=== PATIENT | female | born 1975 | race Caucasian/White ===

== ENCOUNTER 2016-12-07 17:17 | Emergency (ER) | payer BC ==
[~2016-12-07] VITALS: Ht 172.7 cm; Wt 100.0 kg
[~2016-12-07 17:17] MED LIST: LEVO.1 PO; PRED20 PO; TRIA.1%T TOP
[2016-12-07 17:18] VITALS: BP 148/86; PULSE 86; RESP 18; TEMP 98.4; O2SAT 96
--- NOTE | 2016-12-07 19:52 | RADRPT ---
EXAM DATE/TIME: 12/07/2016 19:26 [facility] COMPARISON: No previous studies available for comparison. INDICATIONS : Right ankle pain. MEDICAL HISTORY : None. SURGICAL HISTORY : None. ENCOUNTER: Initial ACUITY: 1 day PAIN SCORE: 9/10 LOCATION: lateral distal ankle joint. FINDINGS: Three view exam was performed of the right ankle. The bony structures are in normal alignment. No e vidence of fracture, dislocation, or soft tissue swelling. The ankle mortise is intact. No radiopaq ue foreign bodies are seen. Bony mineralization is normal. CONCLUSION: Unremarkable examination of the right ankle. Steven Elliott MD on December 07, 2016 at 19:50 Board Certified Radiologist. This report was verified electronically.
[2016-12-07] MEDS ORDERED: LEVO.15 PO (20:10)
[2016-12-07] MEDS ORDERED: ALPR.5 PO (20:10)
--- NOTE | 2016-12-07 20:11 | PD ---
HPI Chief Complaint: Pain: Acute or Chronic Time Seen by Provider: 20:06 Travel History International Travel<30 days: No Contact w/Intl Traveler<30days: No Traveled to known affect area: No History of Present Illness HPI Patient comes in complaining of right ankle pain that began last night. Patient states that she came home from work she noticed redness and swelling in medial aspect of her right ankle describes as burning like in nature. Patient denies any radiation of the pain. Pain is worse with palpation. Denies any fevers, trauma, or drug use. Patient denies anything like this in the past. Patient applied ice it seemed to help some. 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,2008.) Cardiovascular Problems: No High Cholesterol: No Chemotherapy: No Chest Pain: No (FIRST EPISODE 08/03) Congestive Heart Failure: No COPD: No Diabetes: No Diminished Hearing: No Endocrine: No Glaucoma: No Genitourinary: No Hepatitis: No Hiatal Hernia: No Hypertension: No Immune Disorder: No Musculoskeletal: No Neurologic: No Psychiatric: No Reproductive: Yes (CERVICAL CA) Respiratory: No Immunizations Current: Yes Radiation Therapy: No Sleep Apnea: No Thyroid Disease: Yes (GOITER.) ?: Not : 1 Para: 1 Past Surgical History Abdominal Surgery: No Cardiac Surgery: No Ear Surgery: No Endocrine Surgery: No Eye Surgery: No Genitourinary Surgery: No Gynecologic Surgery: Yes (ABLATION; CONE BIOPSY; D&C X2) Hysterectomy: Yes Neurologic Surgery: No Oral Surgery: No Pacemaker: No Thoracic Surgery: No Other Surgery: Yes (D/C;HYSTERECTOMY;ABLASION IN VAGINA) Social History Alcohol Use: Yes (OCCASSIONALLY) Tobacco Use: Yes (1/2 PPD) Substance Use: No Allergies-Medications (Allergen,Severity, Reaction): Coded Allergies: Sulfa (Verified Allergy, Severe, Hives, 06/14/16) Reported Meds & Prescriptions Reported Meds & Active Scripts Active Keflex (Cephalexin) 500 Mg Cap 500 Mg PO Q12H 7 Days Reported Xanax (Alprazolam) 0.5 Mg Tab 0.5 Mg PO Q4H PRN Synthroid (Levothyroxine Sodium) 150 Mcg Tab 150 Mcg PO DAILY Review of Systems Except as stated in HPI: all other systems reviewed are Neg Physical Exam Narrative GENERAL: Well-developed, overly nourished, in no acute distress, and non-ill appearing. SKIN: Warm and dry. Nonerythematous and reveal aspect of right ankle. Is afebrile, nonfluctuant, nonindurated, and without crepitus. It is minimally tender to palpation. HEAD: Atraumatic. Normocephalic. EYES: Pupils equal and round. EOMI. No scleral icterus. No injection or drainage. ENT: No nasal bleeding or discharge. Mucous membranes pink and moist. NECK: Trachea midline. Supple. No nuclear rigidity. CARDIOVASCULAR: Dorsal pulses 2+, intact, and equal bilaterally. Capillary refill less than 2 seconds. RESPIRATORY: No accessory muscle use. No respiratory distress. MUSCULOSKELETAL: No obvious deformities. No clubbing. No cyanosis. No edema. Full range of motion. Ankle: Neagative anterior draw and Mazariegos test. Negative Kathryn's sign. No laxity noted with passive inversion and eversion of BL ankles. Negative squeeze test. Pulses equal BL distal to injury. Capillary refill less than 2 seconds distal to injury and equal BL. Sensation equal BL 1st web space. FROM of toes distal to injury and equal BL. NV intact distal to injury and equal BL. Dorsal pulses equal BL. Normal gait. NEUROLOGICAL: Awake and alert. No obvious cranial nerve deficits. Motor grossly within normal limits. Normal speech. PSYCHIATRIC: Appropriate mood and affect; insight and judgment normal. Data Data Last Documented VS Vital Signs Date Time Temp Pulse Resp B/P Pulse Ox O2 Delivery O2 Flow Rate FiO2 12/07/16 20:10 14 12/07/16 17:18 98.4 86 148/86 96 Room Air Orders Ankle, Complete ([id number]) (12/07/16 ) Ice/Cold Pack (12/07/16 19:29) [facility] Medical Decision Making Medical Screen Exam Complete: Yes Emergency Medical Condition: Yes Differential Diagnosis Fracture, strain, contusion, gout, pseudogout, cellulitis, tendinitis, other Narrative Course The patient appears to have suffered a contusion of the extremity. There is no clinical evidence to suspect bony injury by exam. Radiographic examination revealed no fracture seen at this time. The patient has full range of motion on active and passive motions. There is no significant edema. There is no proximal or distal joint effusion. The distal extremity appears neurovascularly intact, without evidence of neurovascular injury nor compartment syndrome. Tendon exam also was intact. The patient was discharged on antibiotics prophylactically to cover for possible early cellulitis and given warnings for vascular compromise. Patient states she has plenty of naproxen at home to take. The patient is to follow up with their regular physician or Orthopedics. The patient agrees with plan. Patient in no obvious distress upon re-evaluation. All pertinent Radiology result(s) discussed with patient. Patient was asked if they wanted to speak to my attending, which the patient did not wish to do at this time. Any questions/ concerns in reference to patient diagnosis/condition discussed and clarified prior to patient's discharge. Reinforced sheer importance of close follow up with patient's primary physician or primary care clinic. Instructed patient to return to ED immediately, if symptoms return/worsen. Pt showed understanding of above instructions. Further instructions and recommendations were detailed in discharge paperwork. Pt ambulated without difficulty out of ED at discharge. Diagnosis Primary Impression: Contusion of right ankle, initial encounter Referrals: Randy Galeano MD Patient Instructions: Contusion in Adults (ED), General Instructions Additional Instructions: Follow-up with your primary care physician and/or orthopedic in 3-5 days for reevaluation. Take all medication as prescribed. Take your naproxen as prescribed for pain control. Apply ice to affected area 20 minutes per hour as needed for pain. Return to the emergency department if symptoms get worse. Med/Other Pt SpecificInfo: Prescription(s) given Scripts Cephalexin (Keflex)500 Mg [id number] Mg PO Q12H 7 Days Ref 0 Prov:Prerna Guerra MD 12/07/16 Disposition: 01 DISCHARGE HOME Condition: Stable Evans Hancock Dec 07, 2016 20:11
[2016-12-07] MEDS ORDERED: CEPH-460 PO (20:12)
== END 2016-12-07 20:22 | disposition home or self-care (01) ==
LOC: NEPB 17:17
DX: S90.01XA Contusion of right ankle, initial encounter (principal); E07.9 Disorder of thyroid, unspecified; F17.200 Nicotine dependence, unspecified, uncomplicated; Z86.59 Personal history of other mental and behavioral disorders; Z85.41 Personal history of malignant neoplasm of cervix uteri; X58.XXXA Exposure to other specified factors, initial encounter
CPT/HCPCS: 73610; 99283

== ENCOUNTER 2017-05-01 20:37 | Observation (INO) | payer BC, OTHER ==
[2017-05-01] VITALS (8 sets, daily range): BP systolic 118–143; BP diastolic 66–85; PULSE 76–82; RESP 18; TEMP 98.3; O2SAT 90–98
[~2017-05-01] VITALS: Ht 172.7 cm; Wt 96.7 kg
[~2017-05-01 20:37] MED LIST changes: +ALPR.5 PO; +CEPH-460 PO; -LEVO.1 PO; +LEVO.15 PO; -PRED20 PO; -TRIA.1%T TOP
[2017-05-01] MEDS ORDERED: NITROGLYCERIN 0.4 MG SL 25 TABS/BTL SL PRN (21:00)
[2017-05-01] MEDS ORDERED: SODIUM CHLORIDE 0.9% FLUSH 10 ML FLUSH IVF PRN (21:00)
[2017-05-01] MEDS ORDERED: ASPIRIN 325 MG TAB PO ONE (21:00)
[2017-05-01] MEDS ORDERED: VITA1000 PO (21:01)
--- NOTE | 2017-05-01 21:03 | PD ---
HPI Chief Complaint: Chest Pain Time Seen by Provider: 20:51 Travel History International Travel<30 days: No Contact w/Intl Traveler<30days: No Traveled to known affect area: No History of Present Illness HPI 41yo F with PMH of hypothyroidism, anxiety, current cig smoker presents to the ED with c/o left sided chest pain today. States it is sharp and pressure like, intermittent lasting minutes at a time. Associated with sob, nausea, tingling in left fingers. Nonradiating. Denies any fever, cough, vomiting, abdominal pain, focal weakness. When asked if it is similar to her chest pain in 2015, states this is different. Pt was in chest pain center and had negative stress test in 07/2015. Denies having any firer boiler. States pain is worst lying down. 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,2008.) Cardiovascular Problems: No High Cholesterol: No Chemotherapy: No Congestive Heart Failure: No COPD: No Diabetes: No Diminished Hearing: No Endocrine: No Glaucoma: No Genitourinary: No Hepatitis: No Hiatal Hernia: No Hypertension: No Immune Disorder: No Musculoskeletal: No Neurologic: No Psychiatric: No Reproductive: Yes (CERVICAL CA) Respiratory: No Immunizations Current: Yes Radiation Therapy: No Sleep Apnea: No Thyroid Disease: Yes (GOITER.) ?: Not : 1 Para: 1 Past Surgical History Abdominal Surgery: No Cardiac Surgery: No Ear Surgery: No Endocrine Surgery: No Eye Surgery: No Genitourinary Surgery: No Gynecologic Surgery: Yes (ABLATION; CONE BIOPSY; D&C X2) Hysterectomy: Yes Neurologic Surgery: No Oral Surgery: No Pacemaker: No Thoracic Surgery: No Other Surgery: Yes (D/C;HYSTERECTOMY;ABLASION IN VAGINA) Social History Alcohol Use: Yes (OCCASSIONALLY) Tobacco Use: Yes (1/2 PPD) Substance Use: No Allergies-Medications (Allergen,Severity, Reaction): Coded Allergies: Sulfa (Sulfonamide Antibiotics) (Unverified Allergy, Severe, Hives, ) Reported Meds & Prescriptions Reported Meds & Active Scripts Active Reported Vitamin D-1000 (Cholecalciferol) 1,000 Unit Tab 1,000 Units PO DAILY Xanax (Alprazolam) 0.5 Mg Tab 0.5 Mg PO Q4H PRN Synthroid (Levothyroxine Sodium) 150 Mcg Tab 150 Mcg PO DAILY Review of Systems Except as stated in HPI: all other systems reviewed are Neg Physical Exam Narrative GENERAL: 41yo F in mild distress. SKIN: Focused skin assessment warm/dry. HEAD: Atraumatic. Normocephalic. CARDIOVASCULAR: Regular rate and rhythm. No murmur appreciated. RESPIRATORY: No accessory muscle use. Clear to auscultation. Breath sounds equal bilaterally. GASTROINTESTINAL: Abdomen soft, non-tender, nondistended. No rebound tenderness or guarding. MUSCULOSKELETAL: No obvious deformities. No clubbing. No cyanosis. No edema. NEUROLOGICAL: Awake and alert. No obvious cranial nerve deficits. Motor grossly within normal limits. Normal speech. PSYCHIATRIC: Appropriate mood and affect; insight and judgment normal. Data Data Last Documented VS Vital Signs Date Time Temp Pulse Resp B/P Pulse Ox O2 Delivery O2 Flow Rate FiO2 05/01/17 21:30 79 18 118/80 98 Room Air 135/74 05/01/17 21:03 2 05/01/17 20:56 98.3 Orders Electrocardiogram (05/01/17 20:58) Basic Metabolic Panel (Bmp) (05/01/17 20:58) Complete Blood Count With Diff (05/01/17 20:58) Magnesium (Mg) (05/01/17 20:58) Prothrombin Time / Inr (Pt) (05/01/17 20:58) Act Partial Throm Time (Ptt) (05/01/17 20:58) Troponin I (05/01/17 20:58) Chest, Single Ap (05/01/17 20:58) Ecg Monitoring (05/01/17 20:58) Bilateral Bp Monitoring (05/01/17 20:58) Iv Access Insert/Monitor (05/01/17 20:58) Oximetry (05/01/17 20:58) Oxygen Administration (05/01/17 20:58) Sodium Chloride 0.9% Flush (Ns Flush) (05/01/17 21:00) Aspirin (Aspirin) (05/01/17 21:00) Nitroglycerin Sl (Nitrostat Sl) (05/01/17 21:00) Thyroid Stimulating Hormone (05/01/17 20:58) Lorazepam Inj (Ativan Inj) (05/01/17 22:30) Admit Order (Ed Use Only) (05/01/17 22:24) Labs Laboratory Tests Test 05/01/17 21:15 White Blood Count 9.4 TH/MM3 Red Blood Count 4.56 MIL/MM3 Hemoglobin 13.7 GM/DL Hematocrit 40.0 % Mean Corpuscular Volume 87.6 FL Mean Corpuscular Hemoglobin 30.0 PG Mean Corpuscular Hemoglobin 34.3 % Concent Red Cell Distribution Width 13.2 % Platelet Count 327 TH/MM3 Mean Platelet Volume 7.6 FL Neutrophils (%) (Auto) 58.9 % Lymphocytes (%) (Auto) 33.2 % Monocytes (%) (Auto) 4.0 % Eosinophils (%) (Auto) 3.2 % Basophils (%) (Auto) 0.7 % Neutrophils # (Auto) 5.6 TH/MM3 Lymphocytes # (Auto) 3.1 TH/MM3 Monocytes # (Auto) 0.4 TH/MM3 Eosinophils # (Auto) 0.3 TH/MM3 Basophils # (Auto) 0.1 TH/MM3 CBC Comment DIFF FINAL Differential Comment Prothrombin Time 10.0 SEC Prothromb Time International 0.9 RATIO Ratio Activated Partial 31.1 SEC Thromboplast Time Sodium Level 141 MEQ/L Potassium Level 3.9 MEQ/L Chloride Level 108 MEQ/L Carbon Dioxide Level 26.4 MEQ/L Anion Gap 7 MEQ/L Blood Urea Nitrogen 15 MG/DL Creatinine 0.99 MG/DL Estimat Glomerular Filtration 61 ML/MIN Rate Random Glucose 146 MG/DL Calcium Level 8.5 MG/DL Magnesium Level 1.8 MG/DL Troponin I LESS THAN 0.02 NG/ML Thyroid Stimulating Hormone 2.990 uIU/ML [address] [place] [address] Medical Decision Making Medical Screen Exam Complete: Yes Emergency Medical Condition: Yes Interpretation(s) EKG: NSR 77bpm. Normal axis. No ST segment elevation or depression. TWI III. Differential Diagnosis ACS vs anxiety vs. GERD vs. pericarditis Narrative Course 41yo F with intermittent chest pain. Although this may be her anxiety, pt is adamant that this feels different. Pt does appear anxious to me so ativan 1mg IV given. Pt does have cardiac risk factors and is a current cig smoker. She does not have a firer boiler to follow up with. Labs reviewed, no leukocytosis. Troponin negative. TSH normal. Pt given aspirin and 1 sublingual nitro. Pt reevaluated after medication and states she feels better. Will admit pt to chest pain center for serial EKG and cardiac enzyme. Discussed with Dr. Padgett and accepted to her service for chest pain center. Diagnosis Primary Impression: Chest pain Qualified Code: R07.9 - Chest pain, unspecified type Admitting Information Admitting Physician Requests: Pura Griggs DO May 01, 2017 21:03
[2017-05-01 21:29] LABS: AUTOMATED NEUTROPHIL # 5.6 TH/MM3 (1.8-7.7); BASOPHIL # 0.1 TH/MM3 (0-0.2); BASOPHIL % 0.7 % (0.0-2.0); EOSINOPHIL # 0.3 TH/MM3 (0-0.4); EOSINOPHIL % 3.2 % (0.0-4.0); HEMO FLAGS DIFF FINAL; LYMPH % 33.2 % (9.0-44.0); LYMPHOCYTE # 3.1 TH/MM3 (1.0-4.8); MEAN CELL VOLUME 87.6 FL (80.0-100.0); MEAN CORPUSCULAR HGB CONC 34.3 % (32.0-36.0); NEUT % 58.9 % (16.0-70.0); PLATELET COUNT 327 TH/MM3 (150-450); RED BLOOD COUNT 4.56 MIL/MM3 (4.00-5.30); RED CELL DISTRIBUTION WIDTH 13.2 % (11.6-17.2); WHITE BLOOD COUNT 9.4 TH/MM3 (4.0-11.0)
[2017-05-01 21:35] LABS: CHLORIDE 108 MEQ/L (98-107); POTASSIUM 3.9 MEQ/L (3.5-5.1); SODIUM (NA) 141 MEQ/L (136-145)
[2017-05-01 21:38] LABS: APTT (PATIENT) 31.1 SEC (24.3-30.1); INTERNATIONAL NORMALIZED RATIO 0.9 RATIO
[2017-05-01 21:39] LABS: ANION GAP 7 MEQ/L (5-15); BICARBONATE 26.4 MEQ/L (21.0-32.0); BLOOD UREA NITROGEN 15 MG/DL (7-18); MAGNESIUM 1.8 MG/DL (1.5-2.5)
[2017-05-01 21:42] LABS: GLOMERULAR FILTRATION RATE 61 ML/MIN (>89)
--- NOTE | 2017-05-01 21:59 | RADRPT ---
EXAM DATE/TIME: 05/01/2017 21:13 [facility] COMPARISON: CHEST SINGLE AP, August 03, 2015, 19:52. INDICATIONS : Chest pain. MEDICAL HISTORY : None. SURGICAL HISTORY : None. ENCOUNTER: Initial ACUITY: 1 day PAIN SCORE: 5/10 LOCATION: Bilateral chest FINDINGS: A single view of the chest demonstrates the lungs to be symmetrically aerated without evidence of mas s, infiltrate or effusion. The cardiomediastinal contours are unremarkable. Osseous structures are intact. CONCLUSION: Normal examination. Steven Candelaria MD on May 01, 2017 at 21:58 Board Certified Radiologist. This report was verified electronically.
[2017-05-01] MEDS ORDERED: LORazepam 2 MG/ML VIAL IV PUSH ONE (22:30)
[2017-05-01] MEDS ORDERED: SODIUM CHLORIDE 0.9% FLUSH 10 ML FLUSH IV FLUSH PRN (23:00)
[2017-05-02] VITALS (8 sets, daily range): BP systolic 107–145; BP diastolic 71–85; PULSE 72–83; RESP 16–18; TEMP 96.2–97.8; O2SAT 93–97
[2017-05-02 00:59] LABS: CREATINE KINASE 74 U/L (26-192)
[2017-05-02 03:57] LABS: CREATINE KINASE 76 U/L (26-192)
--- NOTE | 2017-05-02 07:45 | HHI.HP ---
[facility] Kaylin Esposito MD (Vipin) Admission Diagnosis Chest pain Diagnoses: (1) Chest pain Diagnosis: Principal (2) Hypothyroidism Diagnosis: Secondary (3) Anxiety Diagnosis: Secondary Travel History International Travel<30 Days: No Contact w/Intl Traveler <30 Da: No Traveled to Known Affected Are: No History of Present Illness Written by Tang Mario, acting as scribe for Dr. Martin on 05/02/17 at 07: 43. 40-year-old female with known history of hypothyroidism, anxiety, diabetes who presented to hospital because of chest discomfort. Patient states that she woke up yesterday morning with chest discomfort 8/10 on a pain scale but she describes as a pressure type sensation. She states that is intermittent throughout the day lasting a couple minutes at a time. She had associated tingling in her left hand. Denied any nausea, vomiting, shortness of breath, dyspnea, lightheadedness, dizziness. Patient tolerated discomfort throughout the day until the discomfort started lasting longer so she came to the hospital for evaluation. Patient has had previous cardiac workup done before in 2014 with an exercise stress test which was negative. At the present time she is asymptomatic. Patient was given aspirin and Ativan in the emergency department with improvement of her discomfort. She did develop some pressure type sensation last evening he was given nitroglycerin. Patient was recommended observation chest pain center. Review of Systems Cardiovascular: COMPLAINS OF: Chest pain Neurologic: COMPLAINS OF: Paresthesias (left hand) Except as stated in HPI: all other systems reviewed are Neg Past Family Social History Past Medical History Hypothyroidism Chronic tobacco use Diabetes, diet controlled Anxiety History cervical cancer Past Surgical History Hysterectomy Cervical ablation Reported Medications Reported Meds & Active Scripts Active Reported Vitamin D-1000 (Cholecalciferol) 1,000 Unit Tab 1,000 Units PO DAILY Xanax (Alprazolam) 0.5 Mg Tab 0.5 Mg PO Q4H PRN Synthroid (Levothyroxine Sodium) 150 Mcg Tab 150 Mcg PO DAILY Allergies: Coded Allergies: Sulfa (Sulfonamide Antibiotics) (Unverified Allergy, Severe, Hives, ) Family History Reviewed is significant for father having chronic kidney disease on dialysis. Mother with coronary artery disease with recent negative nuclear stress test Social History Patient continued to smoke she is down to 1 pack a cigarettes a day since she was 16 years old. He does drink alcohol occasionally denies any illicit drugs Physical Exam Vital Signs Vital Signs Date Time Temp Pulse Resp B/P Pulse Ox O2 Delivery O2 Flow Rate FiO2 05/02/17 04:00 96.3 76 18 117/73 97 05/02/17 03:10 97 21 05/02/17 01:41 96.2 73 16 113/73 96 05/02/17 01:00 Room Air 05/02/17 00:15 97.8 72 18 107/71 97 Room Air 05/01/17 23:15 78 18 123/71 95 Room Air 05/01/17 22:15 76 18 120/72 95 Room Air 05/01/17 21:41 82 18 119/66 96 Room Air 05/01/17 21:35 78 18 121/79 96 Room Air 05/01/17 21:30 97 Room Air 05/01/17 21:30 79 18 118/80 97 Room Air 135/74 05/01/17 21:15 80 18 143/77 98 Nasal Cannula 2 05/01/17 21:03 18 94 Nasal Cannula 2 05/01/17 21:03 94 Nasal Cannula 2 05/01/17 21:03 18 94 Nasal Cannula 2 05/01/17 20:56 98.3 82 18 122/85 90 Physical Exam GENERAL: Well-developed, well-nourished, in no acute distress. alert and orientated HEENT: Head is normocephalic without any lesions or masses noted. Facial features are symmetric. Eyes: Pupils equal round reactive to light. Extraocular muscles are intact. Conjunctivae were clear. Oropharyngeal: Pharynx without any erythema edema. Tongue is midline without deviation. Buccal mucosa is moist without any masses or lesions NECK: Supple without any masses. Trachea midline no deviation. No JVD, no bruits are appreciated CARDIAC: Regular rhythm, regular rate. S1/S2 are heard. No murmurs gallops or rubs. LUNGS: Clear to auscultation bilaterally. No wheeze, rhonchi or rales. No use of accessory muscles on inspiration or expiration. ABDOMEN: Soft, nontender. Nondistended. Bowel sounds heard in all 4 quadrants. No organomegaly or masses. Negative rebound, negative guarding EXTREMITIES: No edema, pulses are equal bilaterally. No cyanosis or clubbing NEUROLOGY: Mood and affect appear appropriate. Cranial nerves II through XII grossly intact. Muscle strength 5/5 in upper and lower extremities bilaterally. Deep tendon reflexes are 2+ in upper and lower extremities bilaterally. Laboratory Laboratory Tests Test 05/01/17 05/02/17 05/02/17 21:15 00:10 03:15 White Blood Count 9.4 Red Blood Count 4.56 Hemoglobin 13.7 Hematocrit 40.0 Mean Corpuscular Volume 87.6 Mean Corpuscular Hemoglobin 30.0 Mean Corpuscular Hemoglobin 34.3 Concent Red Cell Distribution Width 13.2 Platelet Count 327 Mean Platelet Volume 7.6 Neutrophils (%) (Auto) 58.9 Lymphocytes (%) (Auto) 33.2 Monocytes (%) (Auto) 4.0 Eosinophils (%) (Auto) 3.2 Basophils (%) (Auto) 0.7 Neutrophils # (Auto) 5.6 Lymphocytes # (Auto) 3.1 Monocytes # (Auto) 0.4 Eosinophils # (Auto) 0.3 Basophils # (Auto) 0.1 CBC Comment DIFF FINAL Differential Comment Prothrombin Time 10.0 Prothromb Time International 0.9 Ratio Activated Partial 31.1 Thromboplast Time Sodium Level 141 Potassium Level 3.9 Chloride Level 108 Carbon Dioxide Level 26.4 Anion Gap 7 Blood Urea Nitrogen 15 Creatinine 0.99 Estimat Glomerular Filtration 61 Rate Random Glucose 146 Calcium Level 8.5 Magnesium Level 1.8 Troponin I LESS THAN 0.02 LESS THAN 0.02 LESS THAN 0.02 Thyroid Stimulating Hormone 2.990 3rd Gen Total Creatine Kinase 74 76 Result Diagram: 05/01/17211405/01/172114 Imaging Last Impressions Chest X-Ray 05/01/172057 Signed Impressions: Service Date/Time: Monday, May 01, 2017 21:13 - CONCLUSION: Normal examination. Steven Candelaria MD Assessment and Plan Problem List: (1) Chest pain ICD Code: R07.9 Status: Acute Assessment and Plan Chest pain, atypical Patient with increased risk factor to include tobacco use, family history of heart disease Patient has been ruled out for acute coronary event with serial cardiac enzymes which are negative, serial EKGs were reviewed and show sinus rhythm without any changes We'll pursue exercise stress test rule out any underlying ischemia, patient was physically unable to complete exercise stress test. Will convert to Lexiscan for evaluation Continue aspirin and nitroglycerin as needed Diabetes, diet controlled We'll start diabetic diet after cardiac workup Hypothyroidism TSH within normal limits Continue replacement therapy DVT prevention Low risk, early ambulation This note was transcribed by lyly Mario. I, Dr. Lei Martin personally performed the history, physical exam, and medical decision making; and confirmed the accuracy of the information in the transcribed note. Authenticated by Dr. Lei Martin on 05/02/17 at 07:43. Discharge disposition Discharge home in stable condition if stress test is negative Activity: Ad kingsley. Diet: Diabetic diet Medications per medication reconciliation Follow-up primary medical doctor in one week Code Status Full Code Discussed Condition With Patient, dog breeder Problem Qualifiers (1) Chest pain: Qualified Code: R07.9 - Chest pain, unspecified type (2) Hypothyroidism: Qualified Code: E03.9 - Hypothyroidism, unspecified type Tang Mario May 02, 2017 07:45 Lei Martin MD May 02, 2017 07:45
[2017-05-02] MEDS ORDERED: SODIUM CHLORIDE 0.9% FLUSH 10 ML FLUSH IV FLUSH SCH (09:00)
[2017-05-02] MEDS ORDERED: ALPRAZolam 0.25 MG TAB PO PRN (10:30)
[2017-05-02] MEDS ORDERED: REGADENOSON INJ 0.4 MG/5 ML SYR IV ONE (12:20)
--- NOTE | 2017-05-02 13:43 | RADRPT ---
EXAM DATE/TIME: 05/02/2017 11:59 [facility] COMPARISON: No previous studies available for comparison. INDICATIONS : Chest pressure. Angina. Non-diagnostic exercise treadmill test. DOSE: 25.9 mCi Tc99m Myoview at stress. 8.4 mCi Tc99m Myoview at rest. 0.4 mg Lexiscan STRESS SYMPTOMS: Tired. EJECTION FRACTION: > 70% MEDICAL HISTORY : Hypertension. Hypothyroidism. Diabetes mellitus type 2. Cervical cancer and smoker. SURGICAL HISTORY : Hysterectomy. ENCOUNTER: Initial ACUITY: 1 day PAIN SCALE: 8/10 LOCATION: Bilateral chest TECHNIQUE: The patient underwent pharmacologic stress with infusion of prescribed dose. Continuous ECG tracing was monitored during stress. Gated SPECT imaging was performed after stress and conventional SPECT i maging was performed at rest. The examination was performed on a SPECT/CT scanner, both attenuation and non-corrected datasets were reviewed. FINDINGS: DISTRIBUTION: The maximum perfused segment at stress is in the inferior wall. PERFUSION STUDY: The pattern of perfusion at stress is within normal limits. GATED STUDY: There is intact wall motion and thickening without hypokinetic or dyskinetic segments. CONCLUSION: No reversible defects observed to suggest acute ischemia. RISK CATEGORY: Low Omari Arroyo Jr., MD on May 02, 2017 at 13:39 Board Certified Radiologist. This report was verified electronically.
--- NOTE | 2017-05-02 13:46 | HHI.DCPOC ---
Discharge Care Plan Diagnosis: (1) Chest pain Goals to Promote Your Health * To prevent worsening of your condition and complications * To maintain your health at the optimal level Directions to Meet Your Goals Take your medications as prescribed Follow your dietary instruction Follow activity as directed Keep your appointments as scheduled Take your immunizations and boosters as scheduled If your symptoms worsen call your PCP, if no PCP go to Urgent Care Center or Emergency Room Smoking is Dangerous to Your Health. Avoid second hand smoke Call the 24-hour hour crisis hotline for domestic abuse at Tang Mario May 02, 2017 13:46
--- NOTE | 2017-05-02 14:52 | TR ---
Date Performed: 05/02/2017 Time Performed: 08:55:34 DOCTOR: Ray Dsouza DRUG LIST: CLINICAL HISTORY: CHEST PAIN REASON FOR TEST: REASON FOR ENDING: Patient request, physically unable to continue OBSERVATION: Chest Pain: Limiting CONCLUSION: Patient could not tolerate DIA protocol Total Exercise Time=6:13 Maximum LS=824 % Max HR Achieved=79.0% Maximum SG=253/90, Testing stopped secondary to patient request, physical capac ities. During testing that was performed, patient did not reach taerget HR, had quick upsloping ST se gments, patient had dyspnea and chest pressure during exercise without any ST depressions. Incomplete testing, will pursue Lexiscan COMMENTS:
--- NOTE | 2017-05-02 14:57 | TR ---
Date Performed: 05/02/2017 Time Performed: 12:33:23 DOCTOR: Ray Dsouza DRUG LIST: CLINICAL HISTORY: CHEST PAIN REASON FOR TEST: REASON FOR ENDING: OBSERVATION: CONCLUSION: Lexiscan stress test was performed under standard four minute protocol. Radionuclid e was injected one minute prior to ending the test. No electrocardiographic abormalities were present to suggest ischemia. Nuclear imaging and interpretation are pending. COMMENTS:
--- NOTE | 2017-05-02 14:59 | EKG ---
Date Performed: 05/02/2017 Time Performed: 03:15:24 PTAGE: 41 years EKG: Sinus rhythm NORMAL ECG PREVIOUS TRACING : 05/02/2017 00.18 Since previous tracing, no significant change noted DOCTOR: Ray Dsouza Interpretating Date/Time 05/02/2017 14:57:45
--- NOTE | 2017-05-02 15:04 | EKG ---
Date Performed: 05/02/2017 Time Performed: 00:18:04 PTAGE: 41 years EKG: Sinus rhythm NORMAL ECG PREVIOUS TRACING : 05/01/2017 21.05 Since previous tracing, no significant change noted DOCTOR: Ray Dsouza Interpretating Date/Time 05/02/2017 15:03:02
--- NOTE | 2017-05-02 15:10 | EKG ---
Date Performed: 05/01/2017 Time Performed: 21:05:26 PTAGE: 41 years EKG: Sinus rhythm NORMAL ECG PREVIOUS TRACING : 08/04/2015 01.27 Since previous tracing, no significant change noted DOCTOR: Ray Dsouza Interpretating Date/Time 05/02/2017 15:08:52
[2017-05-02 16:47] LABS: HEMOGLOBIN A1a 1.2 %; HEMOGLOBIN A1b 0.9 %; HEMOGLOBIN Ao 84.1 %; HEMOGLOBIN F 1.1 %; HEMOGLOBIN LA1C 2.1 %
== END 2017-05-02 14:38 | disposition home or self-care (01) ==
LOC: PHED 20:37 → PHEDA 22:25 → PH3B 05-02 01:26
PROVIDERS: ADMIT Hospitalist; ATTEND Hospitalist
DX: R07.89 Other chest pain (principal); E03.9 Hypothyroidism, unspecified; I20.9 Angina pectoris, unspecified; F17.210 Nicotine dependence, cigarettes, uncomplicated; R11.0 Nausea; F41.9 Anxiety disorder, unspecified; Z85.41 Personal history of malignant neoplasm of cervix uteri; R06.02 Shortness of breath; R20.2 Paresthesia of skin; E11.9 Type 2 diabetes mellitus without complications; Z82.49 Family history of ischemic heart disease and other diseases of the circulatory system
CPT/HCPCS: 71010; 78452; 80048; 82550; 83036; 83735; 84443; 84484; 85025; 85610; 85730; 93005; 93017; 96374; 99285; A9502; G0378; J2060; J2785

== ENCOUNTER 2017-06-02 22:25 | Emergency (ER) | payer OTHER, BC ==
[~2017-06-02] VITALS: Ht 172.7 cm; Wt 94.6 kg
[~2017-06-02 22:25] MED LIST changes: -CEPH-460 PO; +VITA1000 PO
[2017-06-02 22:35] VITALS: BP 135/77; PULSE 92; RESP 18; TEMP 97.8; O2SAT 96
[2017-06-02] MEDS ORDERED: METF500T PO (23:44)
[2017-06-02] MEDS ORDERED: HYDROmorphone HCL PF 1 MG/ML VIAL IM ONE (23:45)
[2017-06-02] MEDS ORDERED: ONDANSETRON ODT 4 MG TAB PO ONE (23:45)
[2017-06-02] MEDS ORDERED: PERC10TA27 PO (23:47)
[2017-06-02] MEDS ORDERED: CYCL1TAB29 PO (23:47)
--- NOTE | 2017-06-02 23:47 | PD ---
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,2008.) Cardiac Catheterization: No Cardiovascular Problems: Yes (chest pain 2 years ago , neg stress) High Cholesterol: No Chemotherapy: No Congestive Heart Failure: No COPD: No Diabetes: Yes Diminished Hearing: No Endocrine: No Glaucoma: No Genitourinary: No Hepatitis: No Hiatal Hernia: No Hypertension: No Immune Disorder: No Musculoskeletal: No Neurologic: No Psychiatric: No Reproductive: Yes (CERVICAL CA) Respiratory: No Immunizations Current: Yes Radiation Therapy: No Sleep Apnea: No Thyroid Disease: Yes (GOITER.) : 1 Para: 1 Past Surgical History Abdominal Surgery: No Cardiac Surgery: No Coronary Artery Bypass Graft: No Ear Surgery: No Endocrine Surgery: No Eye Surgery: No Genitourinary Surgery: No Gynecologic Surgery: Yes (ABLATION; CONE BIOPSY; D&C X2) Hysterectomy: Yes Neurologic Surgery: No Oral Surgery: No Pacemaker: No Thoracic Surgery: No Other Surgery: Yes (D/C;HYSTERECTOMY;ABLASION IN VAGINA) Social History Alcohol Use: Yes (OCCASSIONALLY) Tobacco Use: Yes (1/2 PPD) Substance Use: No Allergies-Medications (Allergen,Severity, Reaction): Coded Allergies: Sulfa (Sulfonamide Antibiotics) (Unverified Allergy, Severe, Hives, ) Reported Meds & Prescriptions Reported Meds & Active Scripts Active Percocet (Oxycodone-Acetaminophen) 10-325 mg Tab 1 Tab PO Q4H PRN Flexeril (Cyclobenzaprine HCl) 10 Mg Tab 10 Mg PO TID Reported Metformin (Metformin HCl) 500 Mg Tab 500 Mg PO BIDPC With meals Vitamin D-1000 (Cholecalciferol) 1,000 Unit Tab 1,000 Units PO DAILY Xanax (Alprazolam) 0.5 Mg Tab 0.5 Mg PO Q4H PRN Synthroid (Levothyroxine Sodium) 150 Mcg Tab 150 Mcg PO DAILY Review of Systems Except as stated in HPI: all other systems reviewed are Neg Musculoskeletal: Positive: Limited ROM, Pain Physical Exam Narrative GENERAL: SKIN: Warm and dry. HEAD: Atraumatic. Normocephalic. EYES: Pupils equal and round. No scleral icterus. No injection or drainage. ENT: No nasal bleeding or discharge. Mucous membranes pink and moist. NECK: Trachea midline. No JVD. CARDIOVASCULAR: Regular rate and rhythm. RESPIRATORY: No accessory muscle use. Clear to auscultation. Breath sounds equal bilaterally. GASTROINTESTINAL: Abdomen soft, non-tender, nondistended. Hepatic and splenic margins not palpable. MUSCULOSKELETAL: Extremities without clubbing, cyanosis, or edema. No obvious deformities. however noted echymosis to right thigh prox to knee, some edema to right knee as well, and echymosis to right hip/lateral aspect NEUROLOGICAL: Awake and alert. No obvious cranial nerve deficits. Motor grossly within normal limits. Five out of 5 muscle strength in the arms and legs. Normal speech. PSYCHIATRIC: Appropriate mood and affect; insight and judgment normal. Data Data Last Documented VS Vital Signs Date Time Temp Pulse Resp B/P (MAP) Pulse Ox O2 Delivery O2 Flow Rate FiO2 06/03/17 01:00 67 16 119/78 (92) 96 Room Air 06/02/17 22:35 97.8 Orders Orders Hip, Uni(Ap&Lat) W Ap Pelvis (06/02/17 ) Knee, Complete (4vws) (06/02/17 ) Ondansetron Odt (Zofran Odt) (06/02/17 23:45) Hydromorphone Pf Inj (Dilaudid Pf Inj) (06/02/17 23:45) Crutches (06/03/17 00:07) MDM Medical Decision Making Medical Screen Exam Complete: Yes Emergency Medical Condition: Yes Medical Record Reviewed: Yes Differential Diagnosis fx v dislocation v contusion Narrative Course xray negative for fracture or dislocation, patinet will be d/c and to follow up with orthopedist dr nair for decision to return to work Diagnosis Primary Impression: Contusion of right hip and thigh Qualified Codes: S70.01XA - Contusion of right hip, initial encounter; S70.11XA - Contusion of right thigh, initial encounter Additional Impression: Right knee sprain Qualified Codes: S83.91XA - Sprain of unspecified site of right knee, initial encounter Referrals: Colby Nair MD for further reccomendations Patient Instructions: Contusion in Adults (ED), General Instructions, Knee Sprain (ED) Scripts Oxycodone-Acetaminophen (Percocet) 10-325 mg Tab 1 TAB PO Q4H Y for PAIN, #20 TAB 0 Refills Prov: Frederic Baez MD 06/02/17 Cyclobenzaprine (Flexeril) 10 Mg Tab 10 MG PO TID for Muscle Spasm, #30 TAB 0 Refills Prov: Frederic Baez MD 06/02/17 Disposition: 01 DISCHARGE HOME Condition: Stable Frederic Baez MD Jun 02, 2017 23:47
[2017-06-03 00:05] VITALS: BP 120/79; PULSE 78; RESP 16; O2SAT 96
--- NOTE | 2017-06-03 00:16 | RADRPT ---
EXAM DATE/TIME: 06/02/2017 23:37 [facility] COMPARISON: No previous studies available for comparison. INDICATIONS : Right hip pain. MEDICAL HISTORY : None. SURGICAL HISTORY : None. ENCOUNTER: Initial ACUITY: 1 day PAIN SCORE: 8/10 LOCATION: Right hip. FINDINGS: Examination of the right hip was performed with AP Pelvis. The primary and secondary trabecular yazmin marlo of the femoral neck is intact. The hip joint is of normal width without significant sclerosis or bony hypertrophy. The acetabulum is grossly intact. CONCLUSION: Unremarkable examination of the right hip. Omari Arroyo Jr., MD on June 03, 2017 at 0:14 Board Certified Radiologist. This report was verified electronically.
--- NOTE | 2017-06-03 00:17 | RADRPT ---
EXAM DATE/TIME: 06/02/2017 23:50 [facility] COMPARISON: No previous studies available for comparison. INDICATIONS : Right knee pain. MEDICAL HISTORY : None. SURGICAL HISTORY : None. ENCOUNTER: Initial ACUITY: 1 day PAIN SCORE: 10/10 LOCATION: Right knee. FINDINGS: Four view examination of the right knee demonstrates no evidence of fracture or dislocation. Bony mi neralization is normal. The articular surfaces are intact. The suprapatellar soft tissues have a no rmal configuration. CONCLUSION: Unremarkable examination of the right knee. Omari Arroyo Jr., MD on June 03, 2017 at 0:15 Board Certified Radiologist. This report was verified electronically.
[2017-06-03 01:00] VITALS: BP 119/78; PULSE 67; RESP 16; O2SAT 96
== END 2017-06-03 01:09 | disposition home or self-care (01) ==
LOC: PHED 22:25
DX: S70.01XA Contusion of right hip, initial encounter (principal); S83.91XA Sprain of unspecified site of right knee, initial encounter; W22.8XXA Striking against or struck by other objects, initial encounter; Y92.512 Supermarket, store or market as the place of occurrence of the external cause; Y99.0 Civilian activity done for income or pay
CPT/HCPCS: 73502; 73564; 96372; 99284; E0113; J1170

== ENCOUNTER 2017-11-24 10:32 | Emergency (ER) | payer BC ==
[~2017-11-24] VITALS: Ht 172.7 cm; Wt 97.2 kg
[~2017-11-24 10:32] MED LIST changes: +CYCL10TA PO; +METF500T PO; +PERC10TA27 PO
[2017-11-24 10:34] VITALS: BP 133/79; PULSE 88; RESP 18; TEMP 98.2; O2SAT 98
[2017-11-24] MEDS ORDERED: SODIUM CHLORIDE 0.9% FLUSH 10 ML FLUSH IVF PRN (11:00)
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
[2017-11-24 11:20] VITALS: O2SAT 98
[2017-11-24 11:29] LABS: AUTOMATED NEUTROPHIL # 4.8 TH/MM3 (1.8-7.7); BASOPHIL # 0.1 TH/MM3 (0-0.2); BASOPHIL % 0.7 % (0.0-2.0); EOSINOPHIL # 0.2 TH/MM3 (0-0.4); EOSINOPHIL % 2.6 % (0.0-4.0); HEMOGLOBIN 13.3 GM/DL (11.6-15.3); LYMPH % 29.9 % (9.0-44.0); LYMPHOCYTE # 2.4 TH/MM3 (1.0-4.8); MEAN CELL VOLUME 87.8 FL (80.0-100.0); MEAN CORPUSCULAR HEMOGLOBIN 29.3 PG (27.0-34.0); MEAN CORPUSCULAR HGB CONC 33.3 % (32.0-36.0); MEAN PLATELET VOLUME 7.6 FL (7.0-11.0); MONO % 4.5 % (0.0-8.0); MONOCYTE # 0.4 TH/MM3 (0-0.9); NEUT % 62.3 % (16.0-70.0); PLATELET COUNT 326 TH/MM3 (150-450); RED BLOOD COUNT 4.55 MIL/MM3 (4.00-5.30); WHITE BLOOD COUNT 7.9 TH/MM3 (4.0-11.0)
--- NOTE | 2017-11-24 11:31 | RADRPT ---
EXAM DATE/TIME: 11/24/2017 11:15 [facility] COMPARISON: CHEST SINGLE AP, May 01, 2017, 21:13. INDICATIONS : Short of breath, chest pain MEDICAL HISTORY : None. SURGICAL HISTORY : None. ENCOUNTER: Initial ACUITY: 4 - 6 days PAIN SCORE: 7/10 LOCATION: Bilateral chest FINDINGS: A single view of the chest demonstrates the lungs to be symmetrically aerated without evidence of mas s, infiltrate or effusion. The cardiomediastinal contours are unremarkable. Osseous structures are intact. CONCLUSION: No acute disease. Varinder Santoro MD on November 24, 2017 at 11:29 Board Certified Radiologist. This report was verified electronically.
[2017-11-24 11:39] LABS: BILIRUBIN, URINE NEG (NEG); BLOOD, URINE NEG (NEG); GLUCOSE,URINE NEG (NEG); KETONE, URINE NEG (NEG); NITRITE,URINE NEG (NEG); PH, URINE 5.5 (5.0-8.5); URINE COLOR YELLOW (YELLW/STRAW); URINE LEUKOCYTE ESTERASE NEG (NEG)
[2017-11-24 11:44] LABS: CHLORIDE 106 MEQ/L (98-107); SODIUM (NA) 140 MEQ/L (136-145)
[2017-11-24 11:45] VITALS: BP 118/61; PULSE 86; RESP 16; O2SAT 100
[2017-11-24 11:46] LABS: CALCIUM 8.7 MG/DL (8.5-10.1)
[2017-11-24 11:46] LABS: AMORPHOUS SEDIMENT, URINE FEW
[2017-11-24 11:47] LABS: ALBUMIN 3.3 GM/DL (3.4-5.0); BLOOD UREA NITROGEN 13 MG/DL (7-18); GLUCOSE,RANDOM 100 MG/DL (74-106)
[2017-11-24 11:50] LABS: ALT (GPT) 42 U/L (10-53); AST (GOT) 19 U/L (15-37); CREATININE 0.75 MG/DL (0.50-1.00); GLOMERULAR FILTRATION RATE 84 ML/MIN (>89)
[2017-11-24 11:51] LABS: TOTAL BILIRUBIN ADULT 0.4 MG/DL (0.2-1.0); TOTAL PROTEIN 7.1 GM/DL (6.4-8.2)
[2017-11-24 11:53] LABS: ALKALINE PHOSPHATASE 78 U/L (45-117)
[2017-11-24] MEDS ORDERED: CYCL10TA PO (12:35)
[2017-11-24 12:54] VITALS: BP 100/72
--- NOTE | 2017-11-25 18:32 | EKG ---
Date Performed: 11/24/2017 Time Performed: 10:41:05 PTAGE: 42 years EKG: Sinus rhythm NORMAL ECG PREVIOUS TRACING : 05/02/2017 03.15 Since the prior tracing, there has been no significant almeida DOCTOR: Vera Jackson Interpretating Date/Time 11/25/2017 18:30:11
== END 2017-11-24 12:57 | disposition home or self-care (01) ==
LOC: PHED 10:32
DX: S46.811A Strain of other muscles, fascia and tendons at shoulder and upper arm level, right arm, initial encounter (principal); E11.9 Type 2 diabetes mellitus without complications; X58.XXXA Exposure to other specified factors, initial encounter
CPT/HCPCS: 71045; 80053; 81001; 85025; 93005; 99285